=== PATIENT | male | born 1965 | race Caucasian/White ===

== ENCOUNTER 2016-07-22 09:03 | Emergency (ER) | payer OTHER ==
[~2016-07-22] VITALS: Ht 170.2 cm; Wt 82.6 kg
[~2016-07-22 09:03] MED LIST: ASPIRIN 81MG TA81 MG PO; BISOPROLOL 5MG T5 MG PO; EFFIENT10 M1 PO; FLEXERIL10 MG PO; IBU-8800 MG PO; LIPITOR40 MG PO; LISINOPRIL 5MG T5 MG NG; LORTAB 5/500 501 TAB PO; PLAVIX 75MG TAB75 MG PO; PREDNISONE 5MG.5 MG PO; THEO-TIME300 MG PO
[2016-07-22] MEDS ORDERED: BRILINTA90 M1 PO (09:15)
--- NOTE | 2016-07-22 09:32 | Urgent Treatment Center Report ---
History of Present Issue Date/Time Seen by Provider 07/22/16 0920 Visit Reason Pt arrived:Walked Presenting Problem:PT STATES SINUS/CHEST CONGESTION FOR TWO WEEKS. PT STATES HE HAD BEEN TAKING KEFLEX. STATES THIS IS HIS SECOND ROUND OF ANTIBIOTICS. Location if Accident: Onset of symptoms date/time:/ or onset unknown for:MEDICAL HX UNKNOWN Have you (or family members/close friends) recently traveled outside the [place]? N If Yes, where/when: Have you had exposure to infectious disease within the past month? TB? Other? Specify: Patient states that he seen his doctor a couple of weeks ago and was treated for head and chest congestion states that after the first round of Keflex he did not get any better so the gave him a second round of Keflex. States that he still is not feeling any better. States that he is sinus congestion with greenish color "snot" state that he can feel it down in his chest and wanted to be seen before he ended up with pneumonia because he has COPD and chronic bronchitits where he smokes ALLERGIES Coded Allergies: Penicillins (Mild, 11/25/15) Home Medications Active Scripts Prasugrel Hydrochloride (Effient) 10 MG PO DAILY #30 TAB Prov: 09/22/13 Reported Medications THEOPHYLLINE (Theophylline Anhydrous) 350 MG PO BID BISOPROLOL FUMARATE (Bisoprolol 5MG) 2.5 MG PO DAILY LISINOPRIL (Lisinopril) 5 MG NG DAILY ASPIRIN (Aspirin) 81 MG PO DAILY Atorvastatin Calcium (Atorvastatin) 10 MG PO DAILY Ticagrelor (Brilinta) 90 MG PO BID History Medical History General CAD? No Angina: No MA: No Hypertension? Yes Hyperlipidemia? Yes CHF? No DVT? No PE? No COPD? No Asthma? Yes Anemia? No GERD? No Gastric ulcers? No GI Bleed? No Hernia? No Thyroid Problems? No Hypothyroidism? No CVA? No Seizures? No Diabetes? Yes Insulin Dependent: No Insulin Pump: No Home FSBS? No Renal Insuffiency? No UTI? No Stones? No GB Disease: No Nephritic Syndrome? No Asplenia? No Hepatitis? No Sickle Cell Disease? No Arthritis? No Migraines? No Cataracts? No Glaucoma? No MRSA? No HIV? No TB? No Anxiety? No Depression? No Cancer? No Immunization HX DT/Tetanus NOT SURE Flu Refused Pneumonia NEVER Surgical Hx Previous Surgery?Y SINUS SURGERY Tonsils TEETH EXTRACTIONS CARDIAC STENTS X7 Family History Family HX Diabetes Yes CAD Yes Hypertension Yes Hyperlipidemia Yes Cancer Yes TB No Social History Smoking Hx Smoker: Current Every Day Smoker Tobacco: Yes Type Cigarettes Packs/day 1 1/2 - 2 Packs Alcohol Alcohol: No Review of Systems All Other Systems Reviewed and Negative ENT ear pain, nose discharge, nose congestion, throat pain. Respiratory cough Cardiovascular other (congestion) Comment Has been on Keflex for head and chest congestion but he has taken two rounds of Keflex and it has not helped. Physical Exam Vital Signs Vital Signs Date Time Temp Pulse Resp B/P Pulse O2 O2 Flow FiO2 Ox Delivery Rate 07/23 911 98.5 85 20 128/79 96 General Appearance normal appearance, WD/WN Ear, Nose, Throat sinus pain/drainage, nasal congestion, throat red, irritated, greenish colored sinus drainage. Tender over maxillary sinsus, rhonchi noted that clears with cough Respiratory Status Yes: trachea midline, chest symmetrical. No: respiratory distress. Lung Sounds bilateral: wheezing. 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 No Results/Orders Current Medication Orders Sig/Mario Start time Last Medication Dose Route Stop Time Status Admin Levofloxacin 750 MG ONCE ONE 07/22 1030 DC PO 07/22 1031 Albuterol/Ipratropium 3 ML ONCE ONE 07/22 0945 DC 07/22 INH 07/22 0946 0950 Orders Procedure Date/time Status RT REQUEST DUONEB 07/22 0932 Active CHEST(2 VIEWS-NOT PORTABLE) 07/22 0922 Active XRAY/CT/US XRAY/CT/US XRAY chest XR interpretation by reviewed by me (discussed with Dr. Herman) Xray Results abnormal, Appears to have a possible left perihilar mass will refer patient to pulmonology for follow up Progress [facility] Progress Notes Date 07/22/16 Time 1006 Comment Discussed with thom that he had some abnomalities with his chest xray, patient informed that he needed to follow up with lead pressman and primary physician for more extensive testing . After breathing treatment patient state that he felt a little better Departure Departure Time of Disposition 1008 Disposition DC Home or Self Care(routine) Clinical Impression Primary Impression: Lung infection Condition STABLE Referrals PIETRO ALMENDAREZ,SUSI Chandler: Tomorrow-Call Office Call the office tomorrow and make appointment for further testing and exam Patient Instructions Cough, DI for Sinusitis Additional Instructions Call Pulmonology tommorow for appointment to follow up on chest xray Take Medication as prescribed Find new family doctor from the list provided and make appointment immediatly Return to the [facility] if needed Humidifier or Vaporizer to help with breathing and throat irriatation Saline in nose to help break up congestion OVer the counter Motrin or Tylenol as needed for fever Discharge Counseling Counseled pt/family regarding diagnosis, test results, medications/RX, home care, follow up needs, Patient informed of importance to follow up with Dr Addison this week over chest xray findings and to find family doctor for further testing and recommendation of PET scan to be done Prescriptions Current Visit Scripts Levofloxacin (Levaquin 750mg) 750 MG PO DAILY #5 TAB Prednisone (Prednisone 5MG) 5 MG PO BID #60 TAB Comments Patient was a patient of Dr. Manriquez and was given Prescription for Prednisone 5mg twice daily per his orignial prescription at 1031
--- NOTE | 2016-07-22 09:32 | Urgent Treatment Center Report ---
History of Present Issue Date/Time Seen by Provider 07/22/16 0920 Visit Reason Pt arrived:Walked Presenting Problem:PT STATES SINUS/CHEST CONGESTION FOR TWO WEEKS. PT STATES HE HAD BEEN TAKING KEFLEX. STATES THIS IS HIS SECOND ROUND OF ANTIBIOTICS. Location if Accident: Onset of symptoms date/time:/ or onset unknown for:MEDICAL HX UNKNOWN Have you (or family members/close friends) recently traveled outside the [place]? N If Yes, where/when: Have you had exposure to infectious disease within the past month? TB? Other? Specify: Patient states that he seen his doctor a couple of weeks ago and was treated for head and chest congestion states that after the first round of Keflex he did not get any better so the gave him a second round of Keflex. States that he still is not feeling any better. States that he is sinus congestion with greenish color "snot" state that he can feel it down in his chest and wanted to be seen before he ended up with pneumonia because he has COPD and chronic bronchitits where he smokes ALLERGIES Coded Allergies: Penicillins (Mild, 11/25/15) Home Medications Active Scripts Prasugrel Hydrochloride (Effient) 10 MG PO DAILY #30 TAB Prov: 09/22/13 Reported Medications THEOPHYLLINE (Theophylline Anhydrous) 350 MG PO BID BISOPROLOL FUMARATE (Bisoprolol 5MG) 2.5 MG PO DAILY LISINOPRIL (Lisinopril) 5 MG NG DAILY ASPIRIN (Aspirin) 81 MG PO DAILY Atorvastatin Calcium (Atorvastatin) 10 MG PO DAILY Ticagrelor (Brilinta) 90 MG PO BID History Medical History General CAD? No Angina: No RI: No Hypertension? Yes Hyperlipidemia? Yes CHF? No DVT? No PE? No COPD? No Asthma? Yes Anemia? No GERD? No Gastric ulcers? No GI Bleed? No Hernia? No Thyroid Problems? No Hypothyroidism? No CVA? No Seizures? No Diabetes? Yes Insulin Dependent: No Insulin Pump: No Home FSBS? No Renal Insuffiency? No UTI? No Stones? No GB Disease: No Nephritic Syndrome? No Asplenia? No Hepatitis? No Sickle Cell Disease? No Arthritis? No Migraines? No Cataracts? No Glaucoma? No MRSA? No HIV? No TB? No Anxiety? No Depression? No Cancer? No Immunization HX DT/Tetanus NOT SURE Flu Refused Pneumonia NEVER Surgical Hx Previous Surgery?Y SINUS SURGERY Tonsils TEETH EXTRACTIONS CARDIAC STENTS X7 Family History Family HX Diabetes Yes CAD Yes Hypertension Yes Hyperlipidemia Yes Cancer Yes TB No Social History Smoking Hx Smoker: Current Every Day Smoker Tobacco: Yes Type Cigarettes Packs/day 1 1/2 - 2 Packs Alcohol Alcohol: No Review of Systems All Other Systems Reviewed and Negative ENT ear pain, nose discharge, nose congestion, throat pain. Respiratory cough Cardiovascular other (congestion) Comment Has been on Keflex for head and chest congestion but he has taken two rounds of Keflex and it has not helped. Physical Exam Vital Signs Vital Signs Date Time Temp Pulse Resp B/P Pulse O2 O2 Flow FiO2 Ox Delivery Rate 07/23 911 98.5 85 20 128/79 96 General Appearance normal appearance, WD/WN Ear, Nose, Throat sinus pain/drainage, nasal congestion, throat red, irritated, greenish colored sinus drainage. Tender over maxillary sinsus, rhonchi noted that clears with cough Respiratory Status Yes: trachea midline, chest symmetrical. No: respiratory distress. Lung Sounds bilateral: wheezing. 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 No Results/Orders Current Medication Orders Sig/Mario Start time Last Medication Dose Route Stop Time Status Admin Levofloxacin 750 MG ONCE ONE 07/22 1030 DC PO 07/22 1031 Albuterol/Ipratropium 3 ML ONCE ONE 07/22 0945 DC 07/22 INH 07/22 0946 0950 Orders Procedure Date/time Status RT REQUEST DUONEB 07/22 0932 Active CHEST(2 VIEWS-NOT PORTABLE) 07/22 0922 Active XRAY/CT/US XRAY/CT/US XRAY chest XR interpretation by reviewed by me (discussed with Dr. Herman) Xray Results abnormal, Appears to have a possible left perihilar mass will refer patient to pulmonology for follow up Progress [facility] Progress Notes Date 07/22/16 Time 1006 Comment Discussed with thom that he had some abnomalities with his chest xray, patient informed that he needed to follow up with tankage grinder and primary physician for more extensive testing . After breathing treatment patient state that he felt a little better Departure Departure Time of Disposition 1008 Disposition DC Home or Self Care(routine) Clinical Impression Primary Impression: Lung infection Condition STABLE Referrals PIETRO ALMENDAREZ,SUSI Chandler: Tomorrow-Call Office Call the office tomorrow and make appointment for further testing and exam Patient Instructions Cough, DI for Sinusitis Additional Instructions Call Pulmonology tommorow for appointment to follow up on chest xray Take Medication as prescribed Find new family doctor from the list provided and make appointment immediatly Return to the [facility] if needed Humidifier or Vaporizer to help with breathing and throat irriatation Saline in nose to help break up congestion OVer the counter Motrin or Tylenol as needed for fever Discharge Counseling Counseled pt/family regarding diagnosis, test results, medications/RX, home care, follow up needs, Patient informed of importance to follow up with Dr Addison this week over chest xray findings and to find family doctor for further testing and recommendation of PET scan to be done Prescriptions Current Visit Scripts Levofloxacin (Levaquin 750mg) 750 MG PO DAILY #5 TAB Prednisone (Prednisone 5MG) 5 MG PO BID #60 TAB Comments Patient was a patient of Dr. Manriquez and was given Prescription for Prednisone 5mg twice daily per his orignial prescription at 1031
[2016-07-22] MEDS ORDERED: LEVAQUIN 750 M750 MG PO (10:26)
[2016-07-22] MEDS ORDERED: PREDNISONE 5MG.5 MG PO (10:29)
[2016-07-22 10:46] VITALS: BP 128/79
--- NOTE | 2016-07-22 17:14 | RADIOLOGY REPORT PS360 ---
CHEST(2 VIEWS-NOT PORTABLE) Ordering Physician: ESTEPHANIA MAZA APRN Patient Age: 51 years: Male HISTORY: COUGH/CONGESTION TECHNIQUE: PA and lateral chest. FINDINGS Slight Generous left rosalina is again noted. 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 The recent February 2016 CT showed only a generous pulmonary vessels left rosalina with no mass evident. Also there is area of density at the right infrahilar region projected which is again seen and over the right heart on today's as well as prior study. This appears stable since October 2015 CXR... Again the CT exam showed no lesion only crowding of markings & generous pulmonary vessels in this region, which seem to account for this same density.. A given its stability since last year he can be followed. I would however encourage a PA and lateral chest 2 months to further evaluate. . The today's study does show some additional linear scarring and atelectasis at the right midlung along the minor fissure. No pleural effusion. There is also some slight additional linear($at the left midlung. The heart is upper normal in size. Structures unchanged. Chest wall unremarkable. No pleural effusion. T-spine intact. IMPRESSION: . No significant change overall since October 2015. Findings bilaterally appears similar & stable since that prior chest study and with further evaluated on a CT chest without contrast from February 2016. . I would encourage a follow-up two-view chest in 2 months to better reasonable stability these mentioned density-both at the right infrahilar area & as well as the generous left rosalina... Follow-up of pulmonary may be of benefit as well if symptoms persist. A low threshold for all follow-up CT suggested as well this patient with these findings particularly if symptoms persist.
--- OUTSIDE RECORDS SUMMARY | 2016-07-23 04:07 | External Medical Summary Rpt ---
Demographics Preferred Language Uzbek Marital Status Unknown Sabianist Affiliation Unknown Race Unknown Ethnic Group Unknown Author Author , Organization [employer] Address Unknown Phone Unavailable Purpose Continuity of Care Document - through 2016 Immunization No patient found.
--- OUTSIDE RECORDS SUMMARY | 2016-07-23 04:07 | External Medical Summary Rpt ---
Author Author ALYSSA Elder, ALYSSA Elder Organization [employer] Address Unknown Phone Unavailable
--- OUTSIDE RECORDS SUMMARY | 2016-07-23 04:07 | External Medical Summary Rpt ---
Demographics Preferred Language Azeri Marital Status Unknown Oriental Orthodox Affiliation Unknown Race Unknown Ethnic Group Unknown Author Author , Organization [employer] Address Unknown Phone Unavailable Purpose Continuity of Care Document - through 2016 Immunization No patient found.
== END 2016-07-22 10:46 | disposition home or self-care (01) ==
LOC: UTC 09:03
DX: J18.9 Pneumonia, unspecified organism (principal)

== ENCOUNTER 2016-09-25 10:19 | Emergency (ER) | payer OTHER ==
[~2016-09-25] VITALS: Ht 170.2 cm; Wt 80.7 kg
[~2016-09-25 10:19] MED LIST changes: +BRILINTA90 M1 PO; +CEFDINIR 300MG300 MG PO; +FLONASE 50 MCG16 GM; +LEVAQUIN 750 M750 MG PO; -LISINOPRIL 5MG T5 MG NG; +LISINOPRIL 5MG T5 MG PO
--- OUTSIDE RECORDS SUMMARY | 2016-09-25 10:29 | External Medical Summary Rpt ---
Author Author , Organization [employer] Address Unknown Phone Unavailable Purpose Continuity of Care Document - through 2016 Problems Code Diagnosis DOS Provider Status I21.4 NON-ST ELEVATION (NSTEMI) MYOCARDIAL INFARCTION
--- OUTSIDE RECORDS SUMMARY | 2016-09-25 10:30 | External Medical Summary Rpt ---
Demographics Preferred Language Polish Marital Status Unknown Scientologist Affiliation Unknown Race Unknown Ethnic Group Unknown Author Author , Organization [employer] Address Unknown Phone Unavailable Purpose Continuity of Care Document - through 2016 Immunization No patient found.
--- OUTSIDE RECORDS SUMMARY | 2016-09-25 10:30 | External Medical Summary Rpt ---
Demographics Preferred Language Greenlandic Marital Status Unknown Oriental Orthodox Affiliation Unknown Race Unknown Ethnic Group Unknown Author Author , Organization [employer] Address Unknown Phone Unavailable Purpose Continuity of Care Document - through 2016 Immunization No patient found.
[2016-09-25] MEDS ORDERED: GLIPIZIDE 5MG TA5 MG PO (10:34)
[2016-09-25] MEDS ORDERED: METOPROLOL25 MG PO (10:34)
[2016-09-25] MEDS ORDERED: FUROSEMIDE 20MG20 MG PO (10:34)
[2016-09-25] MEDS ORDERED: ZETIA10 MG PO (10:35)
[2016-09-25] MEDS ORDERED: ALDACTONE 25MG25 MG PO (10:35)
[2016-09-25] MEDS ORDERED: VENTOLIN H0.09 MG/AC IH (10:36)
[2016-09-25] MEDS ORDERED: GABAPENTIN300 MG PO (10:36)
[2016-09-25] MEDS ORDERED: BREO ELLIPTA1 POW IH (10:36)
--- NOTE | 2016-09-25 10:39 | Emergency Room Report ---
History of Present Illness Time Seen by 102Roseann Presenting Problem in Triage Pt arrived:Walked Presenting Problem:PT REPORTS FEELING SOA AND WEAK YESTERDAY, REPORTS BEGAN HAVING PAIN IN THE BACK OF HIS NECK TODAY PT STATES HE HAS HAD SIMILAR SYMPTOMS WHEN HAVING TROUBLE WITH PREVIOUS CHOLESTEROL MEDICATIONS. 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 N Clinical Suspician of Infection? N Mental Status: 1 - Regular (Normal Baseline) Sepsis Risk:Low Sepsis Risk Have you (or family members/close friends) recently traveled outside the [place]? N If Yes, where/when: Have you had exposure to infectious disease within the past month? N TB? Other? Specify: Comment The patient says he does not feel well for 2 days. He has generalized weakness and malaise and shortness of air. He had an episode of vomiting this morning. Today he has developed pain in the back of his neck. He denies chest pain. He has a chronic cough, unchanged. No fever. No abdominal pain. No diarrhea. He thinks symptoms may be related to his cholesterol medication. He has been on 3 different medicines, most recent started about a month ago. He has had similar reactions from the others. He says he has an abnormal chest x-ray, has an upcoming appointment with Dr. Vaughn. His blood pressure has been running low for the past month, in the 90s. He had his lisinopril decreased from 2 tablets a day to one tablet a day about a month ago because of that. ALLERGIES Coded Allergies: Penicillins (Mild, 11/25/15) Home Medications Reported Medications THEOPHYLLINE (Theophylline Anhydrous) 300 MG PO BID LISINOPRIL (Lisinopril) 2.5 MG PO BID ASPIRIN (Aspirin) 81 MG PO DAILY Glipizide (Glipizide 5MG) 5 MG PO BID Furosemide (Furosemide) 20 MG PO BID Metoprolol Tartrate (Metoprolol) 25 MG PO BID Spironolactone (Aldactone) 25 MG PO BID Ezetimibe (Zetia) 10 MG PO DAILY ALBUTEROL (Ventolin Hfa) 1 PUFF IH Q6H6 FLUTICASONE/VILANTEROL (Breo Ellipta 100-25 Mcg INH) 1 POW IH DAILY Gabapentin (Gabapentin 300MG) 300 MG PO QHS Ticagrelor (Brilinta) 90 MG PO BID History Medical History General CAD? No Angina: No ID: No Hypertension? Yes Hyperlipidemia? Yes CHF? No DVT? No PE? No COPD? No Asthma? Yes Anemia? No GERD? No Gastric ulcers? No GI Bleed? No Hernia? No Thyroid Problems? No Hypothyroidism? No CVA? No Seizures? No Diabetes? Yes Insulin Dependent: No Insulin Pump: No Home FSBS? No Renal Insuffiency? No End Stage Renal Disease? No UTI? No Stones? No GB Disease: No Nephritic Syndrome? No Asplenia? No Hepatitis? No Sickle Cell Disease? No Arthritis? No Migraines? No Cataracts? No Glaucoma? No MRSA? No HIV? No TB? No Anxiety? No Depression? No Cancer? No Immunization Hx DT/Tetanus NOT SURE Flu Refused Pneumonia NEVER Surgical Hx Previous Surgery?Y SINUS SURGERY Tonsils TEETH EXTRACTIONS CARDIAC STENTS X7 Family History Family Hx Diabetes Yes CAD Yes Hypertension Yes Hyperlipidemia Yes Cancer Yes TB No Social History Smoking Hx Smoker: Current Every Day Smoker Tobacco: Yes Type Cigarettes Packs/day 1 1/2 - 2 Packs Alcohol Alcohol: No Additionial History Additional History Seen in the [facility] 08/22/16, BP syst 92. Review of Systems All Other Systems Reviewed and Negative Constitutional denies fever, malaise, weakness Respiratory cough (chronic), shortness of breath Gastrointestinal denies abdominal pain, denies diarrhea, vomiting Musculoskeletal neck pain Psychiatric/Neurological denies headache Physical Exam Vital Signs Vital Signs Date Time Temp Pulse Resp B/P Pulse O2 O2 Flow FiO2 Ox Delivery Rate 09/25 1306 68 18 94/61 94 09/25 1232 65 18 95/62 91 09/25 1130 85 18 94/59 94 09/25 1109 90 18 106/58 95 09/25 1023 97.6 88 18 91/54 92 General Appearance normal appearance, WD/WN Eye Exam - bilateral eye normal exam, bilateral eye PERRL, bilateral eye EOMI Ear, Nose, Throat hearing grossly normal, normal ENT inspection Neck normal inspection, non-tender, supple, full range of motion Respiratory Status Yes: trachea midline, chest symmetrical, non productive cough. No: respiratory distress. Lung Sounds bilateral: rhonchi. Cardiovascular normal exam, regular rate/rhythm, no peripheral edema, no gallop, no JVD, no murmur, no rub, normal peripheral pulses Peripheral Pulses Pulses normal Yes Gastrointestinal normal bowel sounds, normal exam, non tender, soft, no organomegaly Extremities non-tender, normal range of motion, normal inspection Neurologic alert, chain splitter II-XII nml as tested, normal exam, no motor/sensory deficits, oriented x 3 Mental status normal mood/affect Skin intact, normal color, warm/dry Medical Decision Making LABS/Meds/Orders Pt receiving controlled substance in ED? No Results/Orders Laboratory Tests 09/25/16 1230: Lactic Acid 0.7, Urine Color YELLOW, Urine Appearance CLEAR, Urine pH 6.0, Ur Specific [place] <= 1.005, Urine Protein NEGATIVE, Urine Ketones NEGATIVE, Urine Blood NEGATIVE, Urine Nitrate NEGATIVE, Urine Bilirubin NEGATIVE, Urine Urobilinogen 0.2, Ur Leukocyte Esterase NEGATIVE, Urine Glucose NEGATIVE 09/25/16 1105: B-Natriuretic Peptide 18 09/25/16 1105: Sodium 132 L, Potassium 3.9, Chloride 98, Carbon Dioxide 23, BUN 18, Creatinine 1.6 H, Estimated Creat Clear 62, Estimated GFR (MDRD) 46, Glucose 107 H, Calcium 9.0, Total Bilirubin 0.7, AST 16, ALT 25, Alkaline Phosphatase 93, Creatine Kinase 64, CK-MB (CK-2) Rel Index 0.9, CK and CKMB Interp 0.6, Troponin I < 0.02, Total Protein 7.4, Albumin 3.6, Globulin 3.8 H, Albumin/Globulin Ratio 0.9 L, WBC 19.3 H, RBC 5.31, Hgb 15.8, Hct 45.4, MCV 85.6, RDW 14.5, Plt Count 253, MPV 7.3 L, Gran % 67.1, Gran # 13.0 H, Total Counted 100, Lymphocytes % 20.0, Monocytes % 6.8, Eosinophils % 5.0, Basophils % 1.2, Neutrophils 65, Lymphocytes (Manual) 25, Lymphocytes # 3.9, Monocytes (Manual) 6 , Monocytes # 1.3 H, Eosinophils # 1.0 H, Eosinophils # (Manual) 4 H, Basophils # 0.2, Platelet Estimate NORMAL, PUBS MCHC 34.7, MCH 29.7, Theophylline 8.3 L Current Medication Orders Sig/Mario Start time Last Medication Dose Route Stop Time Status Admin Methylprednisolone 125 MG ONCE ONE 09/25 1130 DC 09/25 Sodium Succinate IV 09/25 1131 1128 Sodium Chloride 1,000 ML .Q1H1M 09/25 1130 DC 09/25 IV 09/25 1230 1128 Sodium Chloride 1,000 ML .STK-MED ONE 09/25 1126 DC IV Methylprednisolone 0 .STK-MED ONE 09/25 1125 DC Sodium Succinate .ROUTE Albuterol/Ipratropium 0 .STK-MED ONE 09/25 1123 DC INH Albuterol/Ipratropium 3 ML ONCE ONE 09/25 1100 DC 09/25 INH 09/25 1101 1115 Sodium Chloride 10 ML PRN PRN 09/25 1100 AC IV 09/26 1046 Sodium Chloride 1,000 ML .Q1H1M 09/25 1100 CAN IV 09/25 1200 Orders Procedure Date/time Status CULTURE, BLOOD 09/25 1139 Active URINALYSIS/COMPLETE 09/25 1139 Complete LACTIC ACID 09/25 1139 Complete DIFFERENTIAL-WBC 09/25 1105 Complete BRAIN NATRIURETIC PEPTIDE 09/25 1049 Complete RT REQUEST DUONEB 09/25 1047 Active ELECTROCARDIOGRAM REQUEST 09/25 1046 Active IV SALINE LOCK 09/25 1046 Active THEOPHYLLINE 09/25 1046 Complete CBC WITH AUTO DIFF 09/25 1046 Complete CARDIAC ENZYMES 09/25 1046 Complete CHEM 12 PROFILE 09/25 1046 Complete CM/EKG CM/EKG Comments EKG interpreted by Alexey Garcia MD: Rhythm: sinus Rate: 92 [place]: normal Ectopy: none Conduction: normal ST Segment Changes: none T Wave Changes: none Q Waves: none No evidence of acute ischemia or injury XRAY/CT/US XRAY/CT/US XRAY chest Comment X-ray interpreted by Alexey Garcia M.D.: atelectasis or scar in both perihilar areas, no acute change Progress - 1:00 PM: The patient says that he feels better and he wants to be discharged home. His neck pain is better. His breathing feels better. He says in general he feels better ever since he got the steroids. He reports to me that he was on prednisone for many years 10 mg a day, but his primary care physician cut it down to 5 mg a day about 50 days ago. This was stopped on Saturday, 2 days ago. He is now not on any steroids. He has an appointment to see Dr. Castillo in 2 days on . I discussed with him his borderline blood pressure, but he states this is been this way for a month. I recommended he stop his lisinopril altogether until he sees Dr. Castillo. I recommend restarting steroids. I discussed his elevated white blood cell count, although no focus of infection has been found. He was on steroids long-term, but recently stopped these, unclear if this may be causing his leukocytosis. He is advised to return to the emergency department for any worsening of symptoms and he is agreeable. Departure Departure Disposition DC Home or Self Care(routine) Clinical Impression Primary Impression: Acute asthma exacerbation Qualifiers: Asthma severity: mild intermittent Qualified Code: J45.21 - Mild intermittent asthma with (acute) exacerbation Secondary Impressions: Leukocytosis Qualifiers: Leukocytosis type: unspecified Qualified Code: D72.829 - Elevated white blood cell count, unspecified Condition STABLE Referrals Yobani Castillo MD (PCP) Patient Instructions DI for Asthma -- Adult, DI for Leukocytosis Additional Instructions Your blood pressure is borderline low in the 90s. Stop taking lisinopril until you see Dr. Castillo on . Drink plenty of fluids. Prednisone as prescribed. Return to the emergency department if vomiting returns, fever, weakness returns, or worsening shortness of breath. Prescriptions Current Visit Scripts Prednisone (Prednisone 10MG) 10 MG PO DAILY #27 TAB 6 po on days 1-2, then decrease dose by 1 pill per day until gone ED Critical Care Critical Care No at 1313
[2016-09-25 11:22] LABS: HEMOGLOBIN 15.8 g/dL (14.1-18.0); LYMPH # 3.9 K/mm3 (0.7-4.5)
[2016-09-25 11:38] LABS: BUN 18 mg/dL (7-18)
[2016-09-25 11:39] LABS: GFR (ESTIMATED) 46 ML/MIN (>60)
--- NOTE | 2016-09-25 11:40 | RADIOLOGY REPORT PS360 ---
CHEST(2 VIEWS-NOT PORTABLE) HISTORY: Shortness of breath sob ORDERING PHYSICIAN: Alexey Garcia MD PATIENT AGE: 51 years COMPARISON: 08/29/2016 FINDINGS: The cardiomediastinal silhouette and pulmonary vascularity are within normal limits. There remains atelectatic change in the left perihilar region and right suprahilar area with some increased density in the hilum both sides. No obvious effusion. No acute bony abnormalities. IMPRESSION: Persistent bilateral atelectatic change with fullness of the rosalina. Consider chest CT with contrast for further evaluation to exclude a postobstructive process especially with mild prominence of the rosalina
[2016-09-25 11:41] LABS: NEUTROPHILS 65 % (42-76)
[2016-09-25 12:44] LABS: URINE BILIRUBIN - DIPSTICK NEGATIVE (NEG); URINE BLOOD NEGATIVE (NEG)
[2016-09-25] MEDS ORDERED: PREDNISONE 10MG10 MG PO (13:12)
[2016-09-25 13:22] VITALS: BP 94/61
== END 2016-09-25 13:23 | disposition home or self-care (01) ==
LOC: ER 10:19
PROVIDERS: Emergency Medicine
DX: J45.21 Mild intermittent asthma with (acute) exacerbation (principal); D72.829 Elevated white blood cell count, unspecified; I10 Essential (primary) hypertension; E11.9 Type 2 diabetes mellitus without complications

== ENCOUNTER → 2016-11-23 | Outpatient (CLI) | payer OTHER ==
[~2016-11-23] MED LIST changes: +ALDACTONE 25MG25 MG PO; +BREO ELLIPTA1 POW IH; +FUROSEMIDE 20MG20 MG PO; +GABAPENTIN300 MG PO; +GLIPIZIDE 5MG TA5 MG PO; +METOPROLOL25 MG PO; +PREDNISONE 10MG10 MG PO; +VENTOLIN H0.09 MG/AC IH; +ZETIA10 MG PO
[2016-11-23 16:13] LABS: BILIRUBIN, INDIRECT 0.24 mg/dL (0-0.9)
== END ==
LOC: CARL-LAB 07:53
PROVIDERS: Internal Medicine
DX: I25.10 Atherosclerotic heart disease of native coronary artery without angina pectoris (principal); I10 Essential (primary) hypertension

== ENCOUNTER 2016-12-06 07:26 | Emergency (ER) | payer OTHER ==
[~2016-12-06] VITALS: Ht 170.2 cm; Wt 78.0 kg
[2016-12-06 08:04] LABS: HEMOGLOBIN 17.2 g/dL (14.1-18.0); LYMPH # 2.8 K/mm3 (0.7-4.5); LYMPH % 21.3 % (10-50)
--- NOTE | 2016-12-06 08:21 | RADIOLOGY REPORT PS360 ---
CHEST(2 VIEWS-NOT PORTABLE) HISTORY: Shortness of air SOA ORDERING PHYSICIAN: Odilia Conroy MD PATIENT AGE: 51 years COMPARISON: 09/25/2016 FINDINGS: The cardiomediastinal silhouette and pulmonary vascularity are within normal limits. Consolidation is present within the posterior segment of the right upper lobe centrally with pneumonia. There is some thickening of the major fissure in the region as well. There are coronary artery calcifications and/or stents noted. Fibrotic changes are present in the left midlung. No effusions. No acute bony anomalies. IMPRESSION: Right upper lobe pneumonia
[2016-12-06 08:25] LABS: BUN 7 mg/dL (7-18)
[2016-12-06 08:26] LABS: GFR (ESTIMATED) 64 ML/MIN (>60)
[2016-12-06] MEDS ORDERED: LEVAQUIN 750 M750 MG PO (09:48)
--- NOTE | 2016-12-06 09:48 | Emergency Room Report ---
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 N Clinical Suspician of Infection? N Mental Status: 1 - Regular (Normal Baseline) Sepsis Risk:Low Sepsis Risk Have you (or family members/close friends) recently traveled outside the [place]? N If Yes, where/when: Have you had exposure to infectious disease within the past month? TB? Other? Specify: The triage above is noted and i agree with it. Mr. Keller is 51 years old white male with chronic lung disease and continues to smoke. Yesterday, he developed shortness of breath and productive cough with white sputum. He continues to use his prednisone. He presented to the ED with no fever or chills. He denies chest pain or pain in between his shoulder blades. Mr. Keller had a CT scan on September 25 of this year which was negative for malignancy and positive for chronic obstructive pulmonary disease and atelectasis, he had a mild aneurysmal data patient. Source patient, RN notes reviewed, old records, Dr. Son. Exam Limitations no limitations ALLERGIES Coded Allergies: Penicillins (Mild, 12/06/16) Home Medications Active Scripts Prednisone (Prednisone 10MG) 10 MG PO DAILY #27 TAB Prov: 09/25/16 Reported Medications THEOPHYLLINE (Theophylline Anhydrous) 300 MG PO BID LISINOPRIL (Lisinopril) 2.5 MG PO BID ASPIRIN (Aspirin) 81 MG PO DAILY Glipizide (Glipizide 5MG) 5 MG PO BID Furosemide (Furosemide) 20 MG PO BID Metoprolol Tartrate (Metoprolol) 25 MG PO BID Spironolactone (Aldactone) 25 MG PO BID Ezetimibe (Zetia) 10 MG PO DAILY ALBUTEROL (Ventolin Hfa) 1 PUFF IH Q6H6 FLUTICASONE/VILANTEROL (Breo Ellipta 100-25 Mcg INH) 1 POW IH DAILY Gabapentin (Gabapentin 300MG) 300 MG PO QHS Ticagrelor (Brilinta) 90 MG PO BID History Medical History General CAD? No Angina: No PR: No Hypertension? Yes Hyperlipidemia? Yes CHF? No DVT? No PE? No COPD? No Asthma? Yes Anemia? No GERD? No Gastric ulcers? No GI Bleed? No Hernia? No Thyroid Problems? No Hypothyroidism? No CVA? No Seizures? No Diabetes? Yes Insulin Dependent: No Insulin Pump: No Home FSBS? No Renal Insuffiency? No End Stage Renal Disease? No UTI? No Stones? No GB Disease: No Nephritic Syndrome? No Asplenia? No Hepatitis? No Sickle Cell Disease? No Arthritis? No Migraines? No Cataracts? No Glaucoma? No MRSA? No HIV? No TB? No Anxiety? No Depression? No Cancer? No Immunization Hx Ped.Immunizations UTD Yes DT/Tetanus NOT SURE Flu Refused Pneumonia NEVER Surgical Hx Previous Surgery?Y SINUS SURGERY Tonsils TEETH EXTRACTIONS CARDIAC STENTS X7 Family History Family Hx Diabetes Yes CAD Yes Hypertension Yes Hyperlipidemia Yes Cancer Yes TB No Social History Smoking Hx Smoker: Current Every Day Smoker Tobacco: Yes Type Cigarettes Packs/day 1 1/2 - 2 Packs Alcohol Alcohol: No Review of Systems All Other Systems Reviewed and Negative Constitutional no symptoms reported Eyes no symptoms reported ENT no symptoms reported. Respiratory see HPI, cough, shortness of breath Cardiovascular no symptoms reported Gastrointestinal no symptoms reported Genitourinary no symptoms reported. Musculoskeletal no symptoms reported Skin no symptoms reported Psychiatric/Neurological no symptoms reported Physical Exam Vital Signs Vital Signs Date Time Temp Pulse Resp B/P Pulse O2 O2 Flow FiO2 Ox Delivery Rate 12/06 1123 102 18 111/70 96 12/06 1009 98.9 102 20 106/79 98 12/06 0933 111 20 106/79 93 12/06 0735 98.9 106 18 138/96 96 - WBC >12,000 or <4,000 or 10% bands? 2 or more SIRS Criteria Met? B/P: MAP:110 Creatinine >2.0? UA output<0.5ml/kg/hr for 2 hrs? Platelet count >100,000? Lactate >2.0mmol/1? INR >1.2 or PTT > than 60 sec? Evidence of Organ Dysfunction? Provider documented clinical suspician of infection? N Sepsis Criteria Count: 1 Sepsis Risk: Low Sepsis Risk General Appearance normal appearance, WD/WN, no apparent distress Eye Exam - bilateral eye normal exam, bilateral eye PERRL, bilateral eye EOMI Ear, Nose, Throat hearing grossly normal, normal ENT inspection Neck normal inspection, non-tender, supple, full range of motion Respiratory Status Yes: trachea midline, chest symmetrical, non tender chest. No: respiratory distress. Lung Sounds bilateral: normal breath sounds (increased AP diameter.), lungs clear. Cardiovascular normal exam, regular rate/rhythm, no peripheral edema, no gallop, no JVD, no murmur, no rub, normal peripheral pulses Gastrointestinal normal bowel sounds, normal exam, non tender, soft, no organomegaly Back normal inspection, no CVA tenderness, no vertebral tenderness Extremities non-tender, no edema. 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 No Results/Orders Laboratory Tests 12/06/16 1010: Troponin I < 0.02 12/06/16 0750: Lactic Acid 1.3 12/06/16 0750: Sodium 135 L, Potassium 3.6, Chloride 101, Carbon Dioxide 22, BUN 7, Creatinine 1.2, Estimated Creat Clear 79, Estimated GFR (MDRD) 64, Glucose 170 H, Calcium 9.2, Total Bilirubin 0.5, AST 22, ALT 38, Alkaline Phosphatase 129 H, Creatine Kinase 75, CK-MB (CK-2) Rel Index 0.9, CK and CKMB Interp 0.7, Troponin I < 0.02 , B-Natriuretic Peptide 32, Total Protein 7.8, Albumin 3.4, Globulin 4.4 H, Albumin/Globulin Ratio 0.8 L, WBC 13.3 H, RBC 5.82, Hgb 17.2, Hct 50.2, MCV 86.2, RDW 13.5, Plt Count 253, MPV 7.6, Gran % 67.2, Gran # 8.9 H, Lymphocytes % 21.3, Monocytes % 7.3, Eosinophils % 3.2, Basophils % 1.1, Lymphocytes # 2.8, Monocytes # 1.0, Eosinophils # 0.4, Basophils # 0.2, PUBS MCHC 34.2, MCH 29.5 Current Medication Orders Sig/Mario Start time Last Medication Dose Route Stop Time Status Admin Albuterol/Ipratropium 3 ML ONCE ONE 12/06 1000 DC 12/06 INH 12/06 1001 1000 Albuterol/Ipratropium 0 .STK-MED ONE 12/06 0954 DC INH Levofloxacin/Dextrose 150 ML .STK-MED ONE 12/06 0929 DC IV Levofloxacin/Dextrose 150 ML ONCE ONE 12/06 0815 DCr 12/06 IV 12/06 0944 0931 Albuterol/Ipratropium 0 .STK-MED ONE 12/06 0751 DC INH Albuterol/Ipratropium 3 ML ONCE ONE 12/06 0745 DC 12/06 INH 12/06 0746 0800 Sodium Chloride 10 ML PRN PRN 12/06 0745 DCD IV 12/07 0739 Orders Procedure Date/time Status RT Aerosol Treatment, Provide 12/06 1124 Active RT REQUEST DUONEB 12/06 0949 Active ARTERIAL BLOOD GAS REQUEST 12/06 0949 Active TROPONIN I 12/06 0949 Complete RT Aerosol Treatment, Provide 12/06 0906 Active CULTURE, SPUTUM 12/06 0815 Active LACTIC ACID 12/06 0813 Complete ELECTROCARDIOGRAM REQUEST 12/06 0740 Active RT REQUEST DUONEB 12/06 0740 Active IV SALINE LOCK 12/06 0740 Active CULTURE, BLOOD 12/06 0740 Active CBC WITH AUTO DIFF 12/06 0740 Complete CARDIAC ENZYMES 12/06 0740 Complete CHEM 12 PROFILE 12/06 0740 Complete BRAIN NATRIURETIC PEPTIDE 12/06 0740 Complete 12 LEAD EKG-[facility] (INITIAL) 12/06 0730 Active 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 XRAY/CT/US XRAY/CT/US XRAY chest XR interpretation by reviewed by me, discussed w/radiologist Xray Results RIGHT upper lobe pneumonia. Departure Departure Time of Disposition 943 Disposition DC Home or Self Care(routine) Clinical Impression Primary Impression: Right upper lobe pneumonia Secondary Impressions: CAD (coronary artery disease), COPD (chronic obstructive pulmonary disease), Tobacco use Condition STABLE Referrals Yobani Son MD Additional Instructions I re evaluted the patient after neb treatm,ent and his sx were better. SECOND SET OF TROPONIN WAS NEGATIVE. His sat increased from 93 to 96% on room air. I discussed with Dr. Son for admission, Dr. Son is very familiar with Mr. Keller, he felt like he is stable and his oxygen is within normal for him. He would like to try him on an outpatient antibiotic therapy. Dr. Son will see him tomorrow at [address] son will follow up on his sputum and blood cultures. I discussed with the patient will has inhalers at home. He will continue to use his inhalers and started on antibiotics. I advised Mr. Keller to stop smoking. I advised Mr. Keller to discuss about nebulizer machine with . Discharge Counseling Counseled pt/family regarding diagnosis, test results, medications/RX, home care, follow up needs Prescriptions Current Visit Scripts Levofloxacin (Levaquin 750mg) 750 MG PO DAILY #10 TAB ED Critical Care Critical Care No If Critical Care minutes are documented, the time involved in the performance of seperately reportable procedures was not counted toward critical care time documented. I directly delivered medical care to this critically ill and/or injured patient. Timely evaluation and treatment was necessary to address the significant organ system(s) dysfunction present in this patient. at 1152
[2016-12-06 11:23] VITALS: BP 111/70
== END 2016-12-06 11:25 | disposition home or self-care (01) ==
LOC: ER 07:26
PROVIDERS: Emergency Medicine
DX: J44.0 Chronic obstructive pulmonary disease with (acute) lower respiratory infection (principal); J18.9 Pneumonia, unspecified organism; F17.210 Nicotine dependence, cigarettes, uncomplicated; I25.10 Atherosclerotic heart disease of native coronary artery without angina pectoris; I10 Essential (primary) hypertension; Z95.5 Presence of coronary angioplasty implant and graft; Z79.84 Long term (current) use of oral hypoglycemic drugs; Z79.82 Long term (current) use of aspirin; Z79.899 Other long term (current) drug therapy; Z79.51 Long term (current) use of inhaled steroids; Z79.52 Long term (current) use of systemic steroids; E11.9 Type 2 diabetes mellitus without complications

== ENCOUNTER → 2017-02-22 | Outpatient (CLI) | payer OTHER ==
[2017-02-22 13:56] LABS: BILIRUBIN, INDIRECT 0.32 mg/dL (0-0.9)
== END ==
LOC: CARL-LAB 07:40
PROVIDERS: Internal Medicine
DX: E78.5 Hyperlipidemia, unspecified (principal); E11.9 Type 2 diabetes mellitus without complications; I10 Essential (primary) hypertension; J44.9 Chronic obstructive pulmonary disease, unspecified; I50.30 Unspecified diastolic (congestive) heart failure